=== PATIENT | female | born 1990 | race African-American/Black ===

== ENCOUNTER 2020-11-18 03:37 | Emergency (ER) | payer SELFPAY ==
[~2020-11-18] VITALS: Ht 167.6 cm; Wt 75.0 kg
[2020-11-18] MEDS ORDERED: HYDR28.485 TOP (05:13)
[2020-11-18] MEDS ORDERED: SULF1TAB48 PO (05:13)
[2020-11-18] MEDS ORDERED: DIPH25CA83 PO (05:13)
[2020-11-18 05:44] VITALS: BP 155/99
== END 2020-11-18 05:44 | disposition home or self-care (01) ==
LOC: ER 03:37
DX: S70.361A Insect bite (nonvenomous), right thigh, initial encounter (principal); W57.XXXA Bitten or stung by nonvenomous insect and other nonvenomous arthropods, initial encounter; Y93.89 Activity, other specified; Y92.89 Other specified places as the place of occurrence of the external cause; I10 Essential (primary) hypertension
CPT/HCPCS: 99283